=== PATIENT | female | born 1960 | race Hispanic/Latino ===

== ENCOUNTER 2022-07-30 19:39 | Inpatient (IN) | payer BC ==
[2022-07-30 20:13] VITALS: BMI 42.8
[2022-07-30] MEDS ORDERED: HYDROcodone/Acetaminophen 5/325 mg Tablet PO PRN (20:23)
[2022-07-30] MEDS ORDERED: Senokot S 8.6-50 MG TAB PO PRN (20:23)
[2022-07-30] MEDS ORDERED: Ondansetron PF 4 MG/2 ML Vial IVP PRN (20:23)
[2022-07-30] MEDS ORDERED: Calcium Carbonate 500 MG ChewTAB PO PRN (20:23)
[2022-07-30] MEDS ORDERED: Morphine 4 MG/ML VIAL SLOW IVP PRN (20:27)
[2022-07-30] MEDS ORDERED: Famotidine/PF 20 mg/2ml Vial SLOW IVP SCH (21:00)
[2022-07-30] MEDS ORDERED: Sodium Chloride 0.9% 1,000 ML IV SCH (21:00)
[2022-07-30] MEDS ORDERED: Morphine 2 MG/ML VIAL SLOW IVP PRN (21:02)
[2022-07-30 21:39] LABS: Anion Gap 13 mmol/L (10-20); BUN (Urea Nitrogen) 38 mg/dL (9.8-20.1); Calc. Creatinine Clearance 54 mL/min (70-130); Calcium 8.8 mg/dL (7.8-10.44); Carbon Dioxide 16 mmol/L (23-31); Chloride 107 mmol/L (98-107); Estimated GFR 38; Glucose 111 mg/dL (80-115); Potassium 3.6 mmol/L (3.5-5.1); Sodium 132 mmol/L (136-145)
[2022-07-30] MEDS ORDERED: Lidocaine 1% PF 5 ML VIAL ONE (21:46)
[2022-07-30] MEDS ORDERED: Fentanyl 100 MCG/2 ML VIAL ONE (21:46)
[2022-07-30] MEDS ORDERED: PROPOFOL 20 ML ONE (21:46)
[2022-07-30] MEDS ORDERED: Ondansetron PF 4 MG/2 ML Vial ONE (21:46)
[2022-07-30] MEDS ORDERED: ePHEDrine Sulfate 50 MG/10 ML VIAL ONE (21:54)
[2022-07-30] MEDS ORDERED: Iopamidol 15 ML ONE (21:54)
[2022-07-30] MEDS ORDERED: Meropenem 1 GM in Sodium Chloride 0.9% 100 ML IVPB SCH (22:00)
[2022-07-30] MEDS ORDERED: Pharmacy to Dose ABX/VANCOMYCIN IVPB PRN (22:16)
[2022-07-30] MEDS ORDERED: Succinylcholine 200 MG/10 ml SYRINGE FS ONE (22:19)
[2022-07-30] MEDS: Sodium Chloride 0.9% 1,000 ML IV SCH (23:50)
[2022-07-31] MEDS: Vancomycin HCl 1 GM in Sodium Chloride 0.9% 250 ML 250 ML IVPB SCH ×2 (01:03→22:32)
[2022-07-31 01:19] LABS: Lactic Acid 3.2 mmol/L (0.5-2.2)
[2022-07-31] MEDS ORDERED: Meropenem 1 GM in Sodium Chloride 0.9% 100 ML IVPB SCH (02:00)
[2022-07-31] MEDS: Meropenem 1 GM in Sodium Chloride 0.9% 100 ML IVPB SCH ×2 (06:05→17:15)
[2022-07-31] MEDS: Sodium Chloride 0.9% 1,000 ML IV SCH (06:06)
[2022-07-31 06:53] LABS: Hemoglobin 11.8 g/dL (12.0-15.5); Mean Corpuscular HGB CONC 35.5 g/dL (32.0-36.0); Mean Corpuscular Volume 92.7 fl (81.6-98.3); Mean Platelet Volume 10.6 fl (7.4-10.4); Platelet Count 71 10x3/uL (150-450); RBC Distribution Width 14.8 % (11.5-14.5); Red Blood Cell (RBC) Count 3.58 10x6/uL (3.90-5.03); White Blood Cell (WBC) Count 12.6 10x3/uL (3.5-10.5)
[2022-07-31 07:20] LABS: ALT (SGPT) 20 U/L (8-55); AST (SGOT) 35 U/L (5-34); Albumin 2.4 g/dL (3.4-4.8); Alkaline Phosphatase 116 U/L (40-110); Anion Gap 14 mmol/L (10-20); BUN (Urea Nitrogen) 42 mg/dL (9.8-20.1); Calc. Creatinine Clearance 58 mL/min (70-130); Calcium 9.1 mg/dL (7.8-10.44); Carbon Dioxide 16 mmol/L (23-31); Chloride 111 mmol/L (98-107); Estimated GFR 41; Globulin 3.1 g/dL (2.4-3.5); Glucose 139 mg/dL (80-115); Potassium 3.4 mmol/L (3.5-5.1); Protein, Total 5.5 g/dL (5.8-8.1); Sodium 138 mmol/L (136-145)
[2022-07-31 07:40] LABS: Bilirubin, Total 1.8 mg/dL (0.2-1.2)
[2022-07-31 07:54] LABS: MDiff Complete? YES
[2022-07-31 07:57] LABS: Band 8 % (5-11); Monocytes 10 % (0-10); Neutrophil 75 % (42-75)
[2022-07-31 07:58] LABS: Lymphocytes 6 % (21-51)
[2022-07-31 08:00] LABS: Platelet Morphology Comment Appears Decreased; RBC Morphology Normal
[2022-07-31] MEDS: Aspirin 81 mg Enteric Coated Tablet PO SCH (09:04)
[2022-07-31] MEDS: Multivitamin W/ Minerals 1 TAB PO SCH (09:04)
[2022-07-31] MEDS: Folic Acid 1 MG TAB PO SCH (09:04)
[2022-07-31] MEDS: Thiamine 100 MG TAB PO SCH (09:04)
[2022-07-31] MEDS: Pantoprazole 40 MG VIAL IVP SCH (09:05)
[2022-07-31] MEDS: Lactated Ringer's 1,000 ML IV SCH ×2 (09:06→09:17)
[2022-07-31] MEDS ORDERED: Meropenem 1 GM VIAL ONE (14:42)
[2022-08-01] MEDS: Acetaminophen 325 MG TAB PO PRN ×2 (00:56→10:35)
[2022-08-01] MEDS: Lactated Ringer's 1,000 ML IV SCH (01:03)
[2022-08-01 05:06] LABS: ALT (SGPT) 19 U/L (8-55); AST (SGOT) 31 U/L (5-34); Albumin 2.1 g/dL (3.4-4.8); Alkaline Phosphatase 102 U/L (40-110); Anion Gap 11 mmol/L (10-20); BUN (Urea Nitrogen) 32 mg/dL (9.8-20.1); Bilirubin, Total 1.1 mg/dL (0.2-1.2); Calc. Creatinine Clearance 68 mL/min (70-130); Calcium 8.9 mg/dL (7.8-10.44); Carbon Dioxide 18 mmol/L (23-31); Chloride 111 mmol/L (98-107); Estimated GFR 50; Globulin 2.9 g/dL (2.4-3.5); Glucose 87 mg/dL (80-115); Potassium 3.1 mmol/L (3.5-5.1); Sodium 137 mmol/L (136-145)
[2022-08-01 05:26] LABS: #Eosinphils 0.1 10x3/uL (0.0-0.5); #Monocytes 1.2 10x3/uL (0.0-1.1); #Neutrophils 5.5 10x3/uL (1.5-8.4); %Basophils 0.5 % (0.0-2.0); %Lymphocytes 13.6 % (18.0-47.0); %Monocytes 14.7 % (0.0-10.0); %Neutrophils 69.3 % (40.0-75.0); Hemoglobin 11.2 g/dL (12.0-15.5); Mean Corpuscular Hemoglobin 32.2 pg (27.0-33.0); Mean Platelet Volume 10.5 fl (7.4-10.4); Platelet Count 69 10x3/uL (150-450); RBC Distribution Width 14.6 % (11.5-14.5); Red Blood Cell (RBC) Count 3.48 10x6/uL (3.90-5.03); White Blood Cell (WBC) Count 7.9 10x3/uL (3.5-10.5)
[2022-08-01] MEDS: Meropenem 1 GM in Sodium Chloride 0.9% 100 ML IVPB SCH ×2 (06:26→17:59)
[2022-08-01] MEDS: Multivitamin W/ Minerals 1 TAB PO SCH (09:40)
[2022-08-01] MEDS: Aspirin 81 mg Enteric Coated Tablet PO SCH (09:40)
[2022-08-01] MEDS: Folic Acid 1 MG TAB PO SCH (09:40)
[2022-08-01] MEDS: Pantoprazole 40 MG VIAL IVP SCH (09:41)
[2022-08-01] MEDS: Thiamine 100 MG TAB PO SCH (09:41)
[2022-08-01] MEDS ORDERED: Ondansetron ODT 4 MG TAB PO PRN (16:10)
[2022-08-01 21:54] LABS: Vancomycin, Trough 8.4 ug/mL
[2022-08-01] MEDS ORDERED: VANCOMYCIN 1.25 GM/250 ML BAG 1.25 GM in Premix Bag 1 BAG IVPB SCH (23:30)
[2022-08-01] MEDS ORDERED: Vancomycin 1.5 GRAM/300 ML BAG 1.5 GM in Premix Bag 1 BAG IVPB SCH (23:30)
[2022-08-02] MEDS: Vancomycin HCl 1 GM in Sodium Chloride 0.9% 250 ML 250 ML IVPB SCH (00:43)
[2022-08-02] MEDS: Lactated Ringer's 1,000 ML IV SCH (00:51)
[2022-08-02] MEDS ORDERED: Vancomycin HCl 500 MG in Sodium Chloride 0.9% 100 ML IVPB SCH (01:00)
[2022-08-02 05:09] LABS: Hemoglobin 10.6 g/dL (12.0-15.5); Mean Corpuscular HGB CONC 34.8 g/dL (32.0-36.0); Mean Corpuscular Hemoglobin 31.8 pg (27.0-33.0); Mean Corpuscular Volume 91.6 fl (81.6-98.3); Mean Platelet Volume 10.5 fl (7.4-10.4); Platelet Count 69 10x3/uL (150-450); RBC Distribution Width 14.4 % (11.5-14.5); Red Blood Cell (RBC) Count 3.33 10x6/uL (3.90-5.03); White Blood Cell (WBC) Count 6.4 10x3/uL (3.5-10.5)
[2022-08-02 05:19] LABS: ALT (SGPT) 18 U/L (8-55); AST (SGOT) 29 U/L (5-34); Albumin 2.2 g/dL (3.4-4.8); Alkaline Phosphatase 121 U/L (40-110); Anion Gap 14 mmol/L (10-20); BUN (Urea Nitrogen) 21 mg/dL (9.8-20.1); Calc. Creatinine Clearance 93 mL/min (70-130); Calcium 8.7 mg/dL (7.8-10.44); Carbon Dioxide 15 mmol/L (23-31); Chloride 111 mmol/L (98-107); Estimated GFR 73; Globulin 2.8 g/dL (2.4-3.5); Glucose 102 mg/dL (80-115); Potassium 3.1 mmol/L (3.5-5.1); Sodium 137 mmol/L (136-145)
[2022-08-02] MEDS: Meropenem 1 GM in Sodium Chloride 0.9% 100 ML IVPB SCH (05:37)
[2022-08-02 05:46] LABS: MDiff Complete? YES
[2022-08-02 06:15] LABS: Eosinophils 3 % (0-10); Lymphocytes 17 % (21-51); Monocytes 12 % (0-10); Neutrophil 68 % (42-75)
[2022-08-02 06:19] LABS: Diff Comment (RBC Morph SCRN) NORMAL
[2022-08-02 06:20] LABS: Platelet Morphology Comment Appears Decreased
[2022-08-02] MEDS ORDERED: Electrolyte Replacement Protocol 1 EACH FS SCH (07:30)
[2022-08-02] MEDS: Folic Acid 1 MG TAB PO SCH (10:21)
[2022-08-02] MEDS: Multivitamin W/ Minerals 1 TAB PO SCH (10:21)
[2022-08-02] MEDS: Potassium Chloride 20 MEQ TAB PO SCH ×2 (10:21→14:16)
[2022-08-02] MEDS: Aspirin 81 mg Enteric Coated Tablet PO SCH (10:21)
[2022-08-02] MEDS: Thiamine 100 MG TAB PO SCH (10:22)
[2022-08-02] MEDS ORDERED: AMPicillin 2 MG in Syringe 0 ML SLOW IVP SCH (10:45)
[2022-08-02] MEDS ORDERED: Ampicillin 2 GM in Sodium Chloride 0.9% 100 ML IVPB SCH (11:00)
[2022-08-02] MEDS: Acetaminophen 325 MG TAB PO PRN (12:15)
[2022-08-02] MEDS: AMPicillin 2 GM in Sodium Chloride 0.9% 100 ML IVPB SCH ×3 (12:15→21:15)
[2022-08-02] MEDS ORDERED: Meropenem 1 GM in Sodium Chloride 0.9% 100 ML IVPB SCH (14:00)
[2022-08-02] MEDS ORDERED: Sodium Bicarbonate Tab 325 MG TAB PO SCH (17:00)
[2022-08-02] MEDS: Sodium Bicarbonate Tab 325 MG TAB PO SCH (21:15)
[2022-08-02] MEDS ORDERED: VANCOMYCIN 1.25 GM/250 ML BAG 1.25 GM in Premix Bag 1 BAG IVPB SCH (22:00)
[2022-08-03] MEDS: AMPicillin 2 GM in Sodium Chloride 0.9% 100 ML IVPB SCH ×7 (00:02→22:04)
[2022-08-03 05:40] LABS: #Eosinphils 0.1 10x3/uL (0.0-0.5); #Monocytes 0.8 10x3/uL (0.0-1.1); #Neutrophils 3.8 10x3/uL (1.5-8.4); %Basophils 0.7 % (0.0-2.0); %Lymphocytes 20.8 % (18.0-47.0); %Monocytes 13.2 % (0.0-10.0); %Neutrophils 61.5 % (40.0-75.0); Hemoglobin 10.7 g/dL (12.0-15.5); Mean Corpuscular HGB CONC 34.3 g/dL (32.0-36.0); Mean Corpuscular Hemoglobin 31.7 pg (27.0-33.0); Mean Corpuscular Volume 92.3 fl (81.6-98.3); Mean Platelet Volume 10.2 fl (7.4-10.4); Platelet Count 87 10x3/uL (150-450); RBC Distribution Width 14.4 % (11.5-14.5); Red Blood Cell (RBC) Count 3.38 10x6/uL (3.90-5.03); White Blood Cell (WBC) Count 6.1 10x3/uL (3.5-10.5)
[2022-08-03 05:49] LABS: Phosphorus 2.6 mg/dL (2.3-4.7)
[2022-08-03 05:54] LABS: ALT (SGPT) 14 U/L (8-55); AST (SGOT) 30 U/L (5-34); Albumin 2.2 g/dL (3.4-4.8); Alkaline Phosphatase 132 U/L (40-110); Anion Gap 14 mmol/L (10-20); BUN (Urea Nitrogen) 15 mg/dL (9.8-20.1); Bilirubin, Total 1.1 mg/dL (0.2-1.2); Calc. Creatinine Clearance 112 mL/min (70-130); Calcium 8.6 mg/dL (7.8-10.44); Carbon Dioxide 17 mmol/L (23-31); Chloride 113 mmol/L (98-107); Estimated GFR 91; Glucose 98 mg/dL (80-115); Magnesium 1.4 mg/dL (1.6-2.6); Potassium 3.8 mmol/L (3.5-5.1); Protein, Total 5.2 g/dL (5.8-8.1); Sodium 140 mmol/L (136-145)
[2022-08-03] MEDS ORDERED: Magnesium 2 GM/50 ML BAG (IN WATER) ONE ×2 (09:40→10:54)
[2022-08-03] MEDS: Multivitamin W/ Minerals 1 TAB PO SCH (09:52)
[2022-08-03] MEDS: Aspirin 81 mg Enteric Coated Tablet PO SCH (09:52)
[2022-08-03] MEDS: Thiamine 100 MG TAB PO SCH (09:52)
[2022-08-03] MEDS: Folic Acid 1 MG TAB PO SCH (09:52)
[2022-08-03] MEDS: Sodium Bicarbonate Tab 325 MG TAB PO SCH ×3 (09:53→22:04)
[2022-08-03] MEDS: Magnesium 2 GM/50 ML(in water) 2 GM in Premix Bag 1 BAG IVPB SCH (09:54)
[2022-08-03] MEDS: Acetaminophen 325 MG TAB PO PRN (11:40)
[2022-08-04] MEDS: AMPicillin 2 GM in Sodium Chloride 0.9% 100 ML IVPB SCH ×6 (02:35→20:58)
[2022-08-04 04:39] LABS: ALT (SGPT) 19 U/L (8-55); AST (SGOT) 35 U/L (5-34); Albumin 2.3 g/dL (3.4-4.8); Alkaline Phosphatase 135 U/L (40-110); Anion Gap 11 mmol/L (10-20); BUN (Urea Nitrogen) 10 mg/dL (9.8-20.1); Calc. Creatinine Clearance 115 mL/min (70-130); Calcium 8.4 mg/dL (7.8-10.44); Carbon Dioxide 22 mmol/L (23-31); Chloride 110 mmol/L (98-107); Estimated GFR 94; Globulin 3.2 g/dL (2.4-3.5); Glucose 108 mg/dL (80-115); Magnesium 1.9 mg/dL (1.6-2.6); Potassium 3.5 mmol/L (3.5-5.1); Protein, Total 5.5 g/dL (5.8-8.1); Sodium 139 mmol/L (136-145)
[2022-08-04 04:51] LABS: #Eosinphils 0.1 10x3/uL (0.0-0.5); #Monocytes 0.6 10x3/uL (0.0-1.1); #Neutrophils 4.3 10x3/uL (1.5-8.4); %Basophils 0.3 % (0.0-2.0); %Eosinophils 1.6 % (0.0-6.0); %Lymphocytes 18.3 % (18.0-47.0); %Neutrophils 67.9 % (40.0-75.0); Hemoglobin 10.8 g/dL (12.0-15.5); Mean Corpuscular HGB CONC 35.2 g/dL (32.0-36.0); Mean Corpuscular Hemoglobin 32.7 pg (27.0-33.0); Mean Platelet Volume 10.1 fl (7.4-10.4); Platelet Count 109 10x3/uL (150-450); RBC Distribution Width 14.4 % (11.5-14.5); White Blood Cell (WBC) Count 6.1 10x3/uL (3.5-10.5)
[2022-08-04] MEDS ORDERED: Potassium Chloride 20 MEQ TAB PO SCH (08:00)
[2022-08-04] MEDS ORDERED: Magnesium 2 GM/50 ML(in water) 2 GM in Premix Bag 1 BAG IVPB SCH (08:00)
[2022-08-04] MEDS: Thiamine 100 MG TAB PO SCH (08:46)
[2022-08-04] MEDS: Folic Acid 1 MG TAB PO SCH (08:46)
[2022-08-04] MEDS: Aspirin 81 mg Enteric Coated Tablet PO SCH (08:46)
[2022-08-04] MEDS: Sodium Bicarbonate Tab 325 MG TAB PO SCH ×3 (08:46→20:58)
[2022-08-04] MEDS: Multivitamin W/ Minerals 1 TAB PO SCH (08:46)
[2022-08-04 13:31] LABS: Potassium 3.8 mmol/L (3.5-5.1)
[2022-08-05] MEDS: AMPicillin 2 GM in Sodium Chloride 0.9% 100 ML IVPB SCH ×4 (02:19→14:20)
[2022-08-05 04:26] LABS: #Eosinphils 0.1 10x3/uL (0.0-0.5); #Monocytes 0.5 10x3/uL (0.0-1.1); #Neutrophils 4.2 10x3/uL (1.5-8.4); %Basophils 0.3 % (0.0-2.0); %Eosinophils 1.6 % (0.0-6.0); %Lymphocytes 19.1 % (18.0-47.0); %Monocytes 7.9 % (0.0-10.0); %Neutrophils 69.5 % (40.0-75.0); Hemoglobin 10.5 g/dL (12.0-15.5); Mean Corpuscular HGB CONC 34.3 g/dL (32.0-36.0); Mean Corpuscular Volume 93.3 fl (81.6-98.3); Mean Platelet Volume 10.1 fl (7.4-10.4); Platelet Count 109 10x3/uL (150-450); RBC Distribution Width 14.4 % (11.5-14.5); Red Blood Cell (RBC) Count 3.28 10x6/uL (3.90-5.03); White Blood Cell (WBC) Count 6.1 10x3/uL (3.5-10.5)
[2022-08-05 04:40] LABS: ALT (SGPT) 15 U/L (8-55); AST (SGOT) 34 U/L (5-34); Albumin 2.3 g/dL (3.4-4.8); Alkaline Phosphatase 142 U/L (40-110); Anion Gap 14 mmol/L (10-20); BUN (Urea Nitrogen) 7 mg/dL (9.8-20.1); Bilirubin, Total 1.1 mg/dL (0.2-1.2); Calc. Creatinine Clearance 129 mL/min (70-130); Calcium 8.3 mg/dL (7.8-10.44); Carbon Dioxide 19 mmol/L (23-31); Chloride 111 mmol/L (98-107); Estimated GFR 100; Globulin 3.2 g/dL (2.4-3.5); Glucose 96 mg/dL (80-115); Magnesium 1.6 mg/dL (1.6-2.6); Potassium 3.7 mmol/L (3.5-5.1); Protein, Total 5.5 g/dL (5.8-8.1); Sodium 140 mmol/L (136-145)
[2022-08-05] MEDS ORDERED: Magnesium 2 GM/50 ML(in water) 2 GM in Premix Bag 1 BAG IVPB SCH (08:00)
[2022-08-05] MEDS: Folic Acid 1 MG TAB PO SCH (09:06)
[2022-08-05] MEDS: Aspirin 81 mg Enteric Coated Tablet PO SCH (09:06)
[2022-08-05] MEDS: Thiamine 100 MG TAB PO SCH (09:06)
[2022-08-05] MEDS: Sodium Bicarbonate Tab 325 MG TAB PO SCH ×2 (09:06→14:20)
[2022-08-05] MEDS: Multivitamin W/ Minerals 1 TAB PO SCH (09:06)
[2022-08-05 14:24] VITALS: BP 140/68; TEMP 98.3
== END 2022-08-05 16:45 | disposition home or self-care (01) | DRG 854 ==
LOC: CSHTELE 19:39 → OBSVTOIN 20:23
PROVIDERS: ADMIT Student in an Organized Health Care Education/Training Program; ATTEND Family Medicine
PROC: 0T768DZ Dilation of Right Ureter with Intraluminal Device, Via Natural or Artificial Opening Endoscopic (ICD-10-PCS; principal; 2022-07-30)
PROC: BT1D1ZZ Fluoroscopy of Right Kidney, Ureter and Bladder using Low Osmolar Contrast (ICD-10-PCS; 2022-07-30)
PROC: 3E03329 Introduction of Other Anti-infective into Peripheral Vein, Percutaneous Approach (ICD-10-PCS; 2022-07-30)
DX: A41.81 Sepsis due to Enterococcus (principal); E87.20 Acidosis, unspecified; N17.9 Acute kidney failure, unspecified; N13.6 Pyonephrosis; Z20.822 Contact with and (suspected) exposure to COVID-19; D69.6 Thrombocytopenia, unspecified; E78.5 Hyperlipidemia, unspecified; E11.9 Type 2 diabetes mellitus without complications; Z79.82 Long term (current) use of aspirin; Z79.899 Other long term (current) drug therapy; Z87.891 Personal history of nicotine dependence; N13.9 Obstructive and reflux uropathy, unspecified; R65.20 Severe sepsis without septic shock
CPT/HCPCS: 36415; 80048; 80053; 80202; 83605; 83735; 84100; 84145; 85025; 87040; 87077; 87086; 87186; C2617; C9113; J0290; J2185; J2405; J2704; J3010; J3370; J3475; J3490; J7050; J7120; Q9967